=== PATIENT | female | born 1945 ===

== ENCOUNTER → 2022-08-27 06:23 | Outpatient (CLI) | payer OTHER ==
[~2022-08-27 06:23] MED LIST: B COMPLEX1 EAC1 PO; DERMOPLAST PAIN78 GM TOP; GLIMEPIRIDE2 M1; GLIMEPIRIDE4 M1 PO; JANUVIA100 MG PO; NEURONTIN300 MG PO; OMEPRAZ PO; ULTRAM50 MG PO
== END | disposition home or self-care (01) ==
LOC: LAB 06:23
PROVIDERS: ATTEND Surgery
DX: Z03.818 Encounter for observation for suspected exposure to other biological agents ruled out (principal); Z20.822 Contact with and (suspected) exposure to COVID-19

== ENCOUNTER 2022-08-27 06:48 | Day surgery (SDC) | payer OTHER ==
[~2022-08-27] VITALS: Ht 154.9 cm; Wt 68.9 kg
[~2022-08-27 06:48] MED LIST changes: -DERMOPLAST PAIN78 GM TOP; -NEURONTIN300 MG PO; -ULTRAM50 MG PO
[2022-08-27] MEDS ORDERED: NEURONTIN300 MG PO (12:27)
[2022-08-27] MEDS ORDERED: DERMOPLAST PAIN78 GM TOP (12:27)
[2022-08-27] MEDS ORDERED: ULTRAM50 MG PO (12:27)
== END 2022-08-27 17:40 | disposition home or self-care (01) ==
LOC: CIR.AMB 06:48
PROVIDERS: ATTEND Surgery
DX: K64.8 Other hemorrhoids (principal); Z20.822 Contact with and (suspected) exposure to COVID-19; K21.9 Gastro-esophageal reflux disease without esophagitis; Z88.6 Allergy status to analgesic agent; Z91.041 Radiographic dye allergy status; Z91.040 Latex allergy status; Z91.013 Allergy to seafood